=== PATIENT | male | born 2005 | race Caucasian/White ===

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

== ENCOUNTER 2024-05-18 11:20 | Emergency (ER) | payer OTHER, SELFPAY ==
[2024-05-18 11:39] VITALS: BP 154/77; PULSE 84; RESP 18; TEMP 36.6; O2SAT 99; BMI 27.3
--- NOTE | 2024-05-18 12:37 | ED_ITS ---
HPI - Back Pain/Injury General: Chief Complaint: Extremity Injury, Lower Stated Complaint: Right leg pain Time Seen by Provider: 05/18/24 12:12 Source: patient Mode of arrival: ambulatory Limitations: no limitations History of Present Illness: Patient is a nice 18-year-old male presents to ED today with a complaint of right-sided back pain that radiates down into his right buttock and down the posterior aspect of his right thigh. Symptoms have been present over the past 2 weeks or so. No known injury or trauma. He states he is in the [employer] and had drill this past weekend which seemed to exacerbate his symptoms. He has not noticed any numbness, tingling, loss of sensation to his leg. No saddle anesthesia. He has not noticed any color or temperature changes to the extremity. MD elicited complaint: back pain Onset (ago): week(s) Timing: constant Severity: moderate Similar Symptoms Previously: No Location: right lower back Radiation: buttocks and right upper leg Exacerbating factors: movement, walking and lifting Relieving factors: none Associated symptoms: Reports no associated symptoms; Deny abdominal pain, chills, dysuria, fatigue, fever(s) or hematuria Work related injury: No Review of Systems Const: Denies: fever(s), chills, body aches, fatigue or malaise Card: Denies: chest pain Resp: Denies: dyspnea GI: Denies: abdominal pain : Denies: flank pain, dysuria or hematuria Musc: Reports: back pain; Denies: neck pain, extremity pain, extremity swelling, joint pain or joint swelling Skin/Breast: Denies: rash Neuro: Denies: headache(s), numbness in extremities, weakness in extremities, sensory changes or dizziness Physical Exam Const: COMMON NORMALS: no acute distress, average body habitus, patient oriented x3, no limitations, healthy appearing, alert and well nourished Neck/C-Spine: COMMON NORMALS: full ROM CERVICAL SPINE: No Cervical spine tenderness : COMMON NORMALS: Yes no CVA tenderness BLADDER/KIDNEY EXAM: Yes no CVA tenderness Back/Pelvis: COMMON NORMALS: no CVA tenderness, thoracic and lumbar spine normal to inspection and no thoracic nor lumbar tenderness PELVIS: Yes sciatic notch tenderness SACROILIAC JOINTS: Yes SI joint(s) abnormal SI joint details: tender to palpation (right) SACRUM: no tenderness COCCYX: no tenderness Extremity: COMMON NORMALS: normal to inspection, full ROM, capillary refill normal, no joint enlargement, no clubbing, cyanosis or edema, no calf tenderness and no pedal edema GENERAL: Yes normal exam except as noted Neuro: COMMON NORMALS: patient oriented x3, moves all extremities, no focal motor deficits, no sensory deficits noted and gait normal SENSORI UM/ORIENTATION: Yes alert Skin: COMMON NORMALS: no rashes or lesions noted GENERAL SKIN EXAM: no rashes or lesions noted Course Vital Signs: Vital signs: Vital Signs Temperature 97.8 F 05/18/24 11:39 Pulse Rate 84 05/18/24 11:39 Respiratory Rate 18 05/18/24 11:39 Blood Pressure 154/77 05/18/24 11:39 Pulse Oximetry 99 05/18/24 11:39 Oxygen Delivery Me thod Room Air 05/18/24 11:39 MDM - Back Pain/Injury Medical Decision Making Patient is directly tender over his right SI joint. He be treated with steroids and NSAIDs. Recommend follow-up with primary care in 1 to 2 weeks if symptoms do not seem to be improving. Medical Records I reviewed the patient's medical records. No radiology studies performed this visit Discharge Plan Discharge Patient Disposition: Home Clinical Impression: SI (sacroiliac) joint inflammation Condition: Stable Prescriptions: New prednisone 10 mg tablet 60 mg PO DAILY 5 Days Qty: 30 0RF diclofenac sodium 50 mg tablet,delayed release (DR/EC) 50 mg PO Q12H PRN (Reason: pain) Qty: 20 0RF No Action azithromycin 250 mg tablet See Rx Instructions PO .COMPLEX Qty: 6 0RF Rx Instructions: take 500 mg today (day 1), then 250 mg for 4 days (days 2-5) PO albuterol sulfate [Ventolin HFA] 90 mcg/actuation HFA aerosol inhaler 2 puff inhalation Q4H PRN (Reason: shortness of breath or wheezing) Qty: 8.5 0RF Discharge Orders: Discharge ED (Routine); Ordered 05/18/24 Ordered By: Rena Antonio Patient Instructions: Sacroiliitis (ED), Lower Back Exercises (ED) Stand Alone Forms: Work/School Release Coding Level of Care Code ED Medical Insurance Claims Specialist for Slade Sarabia
[2024-05-18 12:59] VITALS: PULSE 71; RESP 18; O2SAT 99
== END 2024-05-18 13:01 | disposition home or self-care (01) ==
PROVIDERS: Emergency Provider Physician Assistant
DX: M46.1 Sacroiliitis, not elsewhere classified (principal)
CPT/HCPCS: 99283

== ENCOUNTER 2024-10-22 17:31 | Emergency (ER) | payer OTHER, SELFPAY ==
[2024-10-22 17:41] VITALS: BP 128/80; PULSE 103; TEMP 36.8; O2SAT 100; BMI 27.3
--- NOTE | 2024-10-22 17:58 | CTR_ITS ---
PROCEDURE INFORMATION: Exam: CT Neck With Contrast Exam date and time: 10/22/2024 7:10 PM Age: 19 years old Clinical indication: Mass, lump, or swelling in neck; Right; Additional info: Large swelling to right neck with pain TECHNIQUE: Imaging protocol: Computed tomography of the neck with contrast. Radiation optimization: All CT scans at this facility use at least one of these dose optimization techniques: automated exposure control; mA and/or kV adjustment per patient size (includes targeted exams where dose is matched to clinical indication); or iterative reconstruction. Contrast material: OMNI 350; Contrast volume: 100 ml; Contrast route: INTRAVENOUS (IV); COMPARISON: No relevant prior studies available. RADIATION DOSE METRICS: Total DLP (mGy-cm): 245.06 FINDINGS: Salivary glands: Normal. Glands are normal in size. Pharynx: Unremarkable. No significant tonsillar enlargement. Prevertebral and retropharyngeal spaces: Unremarkable. Larynx: Unremarkable. Epiglottis is normal. Thyroid: Normal. No enlarged or calcified nodules. Trachea: Visualized trachea is unremarkable. Lungs: Unremarkable as visualized. Lymph nodes: Unremarkable. No lymphadenopathy. Bones/joints: Unremarkable. No acute fracture. Soft tissues: Homogeneous mildly enhancing lobulated soft tissue densities deep to the right sternocleidomastoid musculature spanning roughly 9 cm in length and 2.[address]/CT neck w con* [id number] IMPRESSION: At the area of concern there is homogeneous mildly enhancing soft tissue densities deep to the sternocleidomastoid musculature with the primary differential considerations including lymphadenopathy (favored) versus lymphovascular malformation. A targeted ultrasound of this region should help differentiate between these entities.
--- NOTE | 2024-10-22 17:59 | ED_ITS ---
HPI - Neck Pain/Injury 2 General: Chief Complaint: Neck Pain/Injury Stated Complaint: swollen lymph nodes Time Seen by Provider: 10/22/24 17:46 Source: patient Mode of arrival: ambulatory Limitations: no limitations History of Present Illness: Patient is a 19-year-old male presenting to the emergency department with swelling and pain to right neck that has been evolving for 1 week. Denies any preceding illness such as sinus infection or ear infection, gradual onset. States the pain is too severe that he cannot really laterally rotate his neck, he also reports associated weakness, epistaxis, and headaches. He denies trouble swallowing or inability to handle his secretions. He is also denying any fevers or unexplained weight loss. He also notes there are couple of smaller lymph nodes that seem to be displaying the same progression of swelling just inferior to the large swelling. He notes he was initially seen with primary care sent here for labs and imaging. MD complaint: neck pain Onset (ago): week(s) (1) Radiation: right lateral Severity: severe Duration: constant and progressively worsening Associated symptoms: Reports headache(s); Denies nausea Related Data Previous Rx's Medication Instructions Recorded amoxicillin 875 mg-potassium 1 tab PO BID 10 days #20 tabs 10/22/24 clavulanate 125 mg tablet prednisone 20 mg tablet 60 mg (3 x 20 mg) PO ONCE 5 days 10/22/24 #15 tabs Allergies Allergy/AdvReac Type Severity Reaction Status Date / Time No Known Allergies Allergy Verified 10/22/24 17:45 Review of Systems 2 General: Reports: 10 or more systems reviewed and unremarkable except in HPI and below Const: Reports: fatigue; Denies: fever(s) or chills Eyes: Denies: change in vision ENMT: Reports: epistaxis and sinus pain; Denies: throat pain, ear or mastoid pain or nasal discharge Card: Denies: chest pain, palpitations, swelling of feet/ankles or lightheadedness Resp: Denies: dyspnea, productive cough or wheezing GI: Denies: abdominal pain, nausea, vomiting, diarrhea or constipation : Denies: flank pain, difficulty urinating, dysuria or urinary frequency Musc: Reports: neck pain and other (Neck swelling); Denies: back pain or joint pain Skin/Breast: Denies: rash Neuro: Reports: headache(s); Denies: numbness in extremities or weakness in extremities PFSH ED 2 PFSH: Social History Smoking and tobacco/nicotine status: never used tobacco/nicotine Physical Exam 2 Const: COMMON NORMALS: no acute distress and no limitations GENERAL APPEARANCE: cooperative, comfortable and well developed O RIENTATION/CONSCIOUSNESS: Yes awake HENMT: COMMON NORMALS: normocephalic, atraumatic, hearing grossly normal bilaterally, external ears normal, EAC's normal, Normal external nose present and Normal nasal mucous membranes and turbinates present HEAD & SCALP: n ormocephalic and atraumatic FACE & SINUS: normal facial exam NOSE: Normal external nose present, Normal nares present, No nasal polyps present and Normal nasal mucous membranes and turbinates present EXTERNAL EAR: Yes external ears normal EXTERNAL AUDITORY CANAL: EAC's normal TYMPANIC MEMBRANE: TM abnormal TM laterality: bilateral obstructed by cerumen MOUTH: Normal oral and palatal mucosa present THROAT: posterior oropharynx normal, tonsils normal and uvula midline OTHER: Large area of swelling to right lateral neck, this area is significantly hard and immobile and tender to very light touch. No mastoid bone tenderness. 2 palpable lymph nodes just inferior to this area that are also tender to the touch. No overlying skin changes. Eye: COMMON NORMALS: Equal, round and reactive pupils present, EOMs intact bilaterally and conjunctivae normal CONJUNCTIVA: Yes conjunctivae normal P UPIL: Yes Equal, round and reactive pupils present Neck/C-Spine: COMMON NORMALS: full ROM, supple and no JVD Resp: COMMON NORMALS: normal respiratory effort, No retractions, No use of accessory muscles and clear to auscultation bilaterally AUSCULTATION: clear to auscultation bilaterally Cardio: COMMON NORMALS: no JVD, regular rate, regular rhythm, No clicks present (Cardio), No murmurs present (Cardio) and No rub (Cardio) RATE: r egular rate RHYTHM: regular rhythm GI: COMMON NORMALS: Normal to inspection, nondistended, normoactive bowel sounds present, Soft to palpation and non-tender AUSCULTATION: Yes normoactive bowel sounds PALPATION: Yes Soft to palpation RECTAL EXAM: Yes deferred Extremity: COMMON NORMALS: normal to inspection, full ROM and capillary refill normal Skin: COMMON NORMALS: no rashes or lesions noted GENERAL SKIN EXAM: no rashes or lesions noted Course 2 Vital Signs: Vital signs: Vital Signs Temperature 98.2 F 10/22/24 17:41 Pulse Rate 93 10/22/24 18:38 Respiratory Rate 18 10/22/24 18:38 Blood Pressure 136/77 10/22/24 18:38 Pulse Oximetry 99 10/22/24 18:38 Oxygen Delivery Me thod Room Air 10/22/24 18:38 MDM - Neck Pain/Injury Medical Decision Making Patient presented with swelling to right neck, referred by primary care. This is occurred over a week. CT showed adenopathy versus lymphovascular malformation, ultrasound confirmed adenopathy. He had no trouble breathing, no trouble handling secretions, no other concerning symptoms with posterior oropharynx. Blood work was all unremarkable. Was given 10 mg dexamethasone through IV, states it was feeling somewhat better. With the unknown etiology we will just go ahead and treat with antibiotics and steroids and have him closely follow-up with primary care. Reasons to return discussed. He is comfortable with this plan, discharge at this time. Case discussed with Dr. Koo. Lab Data 10/22/24 18:20 10/22/24 18:[address] 10/22/24 17:58 IMPRESSION: At the area of concern there is homogeneous mildly enhancing soft tissue densities deep to the sternocleidomastoid musculature with the primary differential considerations including lymphadenopathy (favored) versus lymphovascular malformation. A targeted ultrasound of this region should help differentiate between these entities. Soft Tissue Ultrasound 10/22/24 21:01 IMPRESSION: Confirmed cervical adenopathy at the area of interest in the right neck. Laboratory Results WBC 5.77 10^3/uL (4.5-13.0) 10/22/24 18:20 RBC 4.68 10^6/uL (3.85-5.65) 10/22/24 18:20 Hgb 14.80 g/dL (13.2-15.6) 10/22/24 18:20 Hct 44.0 % (37-53) 10/22/24 18:20 MCV 94.0 fl (82-101) 10/22/24 18:20 MCH 31.6 pg (27-33) 10/22/24 18:20 MCHC 33.6 g/dL (30-55) 10/22/24 18:20 RDW 11.5 % (12.1-15.1) L 10/22/24 18:20 Plt Count 200 10^3/cmm (157-399) 10/22/24 18:20 MPV 10.0 fL (7.4-10.4) 10/22/24 18:20 Neut % (Auto) 55.5 % 10/22/24 18:20 Lymph % (Auto) 26.3 % 10/22/24 18:20 Barnes % (Auto) 15.4 % 10/22/24 18:20 Eos % (Auto) 1.7 % 10/22/24 18:20 Baso % (Auto) 0.9 % 10/22/24 18:20 Neut # (Auto) 3.20 10^3/uL (1.8-8.0) 10/22/24 18:20 Lymph # (Auto) 1.5 10^3/uL (1.5-6.5) 10/22/24 18:20 Barnes # (Auto) 0.9 10^3/uL (0.2-0.9) 10/22/24 18:20 Eos # (Auto) 0.1 10^3/uL (0.0-0.8) 10/22/24 18:20 Baso # (Auto) 0.1 10^3/uL (0.0-0.1) 10/22/24 18:20 Nucleated RBC % (auto) 0 % 10/22/24 18:20 Nucleated RBCs # 0.0 /100WBC 10/22/24 18:20 ESR 5 mm/hr (0-10) 10/22/24 18:20 Sodium 135 mmol/L (136-145) L 10/22/24 18:20 Potassium 4.0 mmol/L (3.5-5.1) 10/22/24 18:20 Chloride 96 mmol/L (98-107) L 10/22/24 18:20 Carbon Dioxide 29 mmol/L (22-29) 10/22/24 18:20 Anion Gap 14.0 (5-19) 10/22/24 18:20 BUN 18 mg/dL (6-20) 10/22/24 18:20 Creatinine 1.1 mg/dL (0.7-1.2) 10/22/24 18:20 GFR Calculation 85.3 mL/min (90-130) L 10/22/24 18:20 Glucose 98 mg/dL (65-115) 10/22/24 18:20 Calculated Osmolality 282 mOsm/kg (285-295) L 10/22/24 18:20 Calcium 10.0 mg/dL (8.5-10.5) 10/22/24 18:20 Total Bilirubin 0.7 mg/dL (0.15-1.2) 10/22/24 18:20 AST 21 U/L (0-40) 10/22/24 18:20 ALT 18 U/L (0-41) 10/22/24 18:20 Alkaline Phosphatase 78 U/L (40-130) 10/22/24 18:20 C-Reactive Protein 33.4 mg/L (0.0-4.9) H 10/22/24 18:20 Total Protein 7.9 g/dL (6.6-8.7) 10/22/24 18:20 Albumin 4.6 g/dL (3.5-5.2) 10/22/24 18:20 Globulin 3.3 g/dL (1.3-4.6) 10/22/24 18:20 All radiology interpretation(s) finalized by discharge Discharge Plan Discharge Patient Disposition: Home Clinical Impression: Lymphadenitis Condition: Stable Prescriptions: New prednisone 20 mg tablet 60 mg PO ONCE 5 Days Qty: 15 0RF amoxicillin-pot clavulanate 875-125 mg tablet 1 tab PO BID 10 Days Qty: 20 0RF Discharge Orders: Discharge ED (Routine); Ordered 10/22/24 Ordered By: Miguel Xie Patient Instructions: Adenitis (ED) Activity Restrictions/Additional Instructions: Please take antibiotics and steroids as prescribed. Follow-up closely with your primary care provider for routine reevaluation. See attached patient instructions for further education. Please note that if you begin to have any difficulty breathing, trouble handling your own saliva, or any other concerning symptoms to return immediately to the emergency department. Coding Level of Care Code ED Word Processor for Slade Sarabia
[2024-10-22 18:35] LABS: Basophils # 0.1 10^3/uL (0.0-0.1); Basophils % 0.9 %; Eosinophils # 0.1 10^3/uL (0.0-0.8); Eosinophils % 1.7 %; Lymphocytes # 1.5 10^3/uL (1.5-6.5); Lymphocytes % 26.3 %; Mean Corpuscular HGB Conc 33.6 g/dL (30-55); Mean Corpuscular Hemoglobin 31.6 pg (27-33); Monocytes # 0.9 10^3/uL (0.2-0.9); Monocytes % 15.4 %; Neutrophils % 55.5 %; Nucleated Red Blood Cells % 0 %; Platelet Count 200 10^3/cmm (157-399); Red Blood Count 4.68 10^6/uL (3.85-5.65); Red Cell Distribution Width 11.5 % (12.1-15.1); White Blood Count 5.77 10^3/uL (4.5-13.0)
[2024-10-22 18:38] VITALS: BP 136/77; PULSE 93; RESP 18; O2SAT 99
[2024-10-22 18:40] LABS: Erythrocyte Sedimentation Rate 5 mm/hr (0-10)
[2024-10-22] MEDS: dexamethasone 10 mg/mL INJ IVP (18:41)
[2024-10-22 18:52] LABS: Alanine Aminotransferase 18 U/L (0-41); Albumin Level 4.6 g/dL (3.5-5.2); Alkaline Phosphatase 78 U/L (40-130); Aspartate Amino Transferase 21 U/L (0-40); Blood Urea Nitrogen 18 mg/dL (6-20); C Reactive Protein 33.4 mg/L (0.0-4.9); Carbon Dioxide 29 mmol/L (22-29); Chloride 96 mmol/L (98-107); Creatinine Clr Calc Pharmacy 115.1303; Globulin 3.3 g/dL (1.3-4.6); Glomerular Filtration Rate 85.3 mL/min (90-130); Glucose 98 mg/dL (65-115); Osmolality Calculated 282 mOsm/kg (285-295); Sodium 135 mmol/L (136-145); Total Bilirubin 0.7 mg/dL (0.15-1.2); Total Protein 7.9 g/dL (6.6-8.7)
[2024-10-22] MEDS: iohexol 350 mg/mL 500 mL Btl (per mL) IV (19:14)
--- NOTE | 2024-10-22 21:01 | USR_ITS ---
PROCEDURE INFORMATION: Exam: US Right Limited Joint or Other Non-Vascular Extremity Structure Exam date and time: 10/22/2024 9:13 PM Age: 19 years old Clinical indication: Other: Right neck swelling 1 week S/P dental cleaning, hard, palpable. F/u CT; Additional info: US right neck TECHNIQUE: Imaging protocol: US right limited joint or other nonvascular extremity structure. Real-time ultrasound with image documentation. Exam focused on the area of clinical interest. COMPARISON: CT neck w con* [id number] 10/22/2024 7:10 PM FINDINGS: Soft tissues: Several enlarged, hyperemic lymph nodes noted in the area of interest with fatty hilums intact the largest measuring 2.7 x 1.4 cm. US/US soft tissue/extremity [id number] IMPRESSION: Confirmed cervical adenopathy at the area of interest in the right neck.
[2024-10-22 22:00] VITALS: PULSE 94; RESP 16; O2SAT 97
[2024-10-22 23:10] VITALS: BP 133/87; PULSE 95; O2SAT 96
== END 2024-10-22 23:11 | disposition home or self-care (01) ==
PROVIDERS: Emergency Provider Physician Assistant
DX: I88.9 Nonspecific lymphadenitis, unspecified (principal)
CPT/HCPCS: 36415; 70491; 76882; 80053; 85025; 85651; 86140; 96374; 99285; J1100